=== PATIENT | female | born 1950 | race Caucasian/White ===

== ENCOUNTER 2018-08-06 16:36 | Inpatient (IN) | payer MEDICARE, OTHER ==
[~2018-08-06] VITALS: Ht 165.1 cm; Wt 80.3 kg
[~2018-08-06 16:36] MED LIST: ALPR0.25 PO; ASPI-482 PO; ESCITALOPRAM OX20 MG PO; EZET10TA18 PO; LOSA-73 PO; METO-239 PO; OMEP20TA63 PO
[2018-08-06 17:02] LABS: BASO # 0.1 x10^3/uL (0.0-0.2); BASO % 1 % (0-3); EOS # 0.1 x10^3/uL (0.0-0.7); EOS % 2 % (0-3); HEMATOCRIT 42.4 % (36.0-47.0); HEMOGLOBIN 14.1 g/dL (12.0-15.5); LYMPH # 2.1 x10^3/uL (1.0-4.8); LYMPH % 23 % (24-48); MEAN CORPUSCULAR HEMOGLOBIN 30 pg (25-35); MEAN CORPUSCULAR HGB CONC 33 g/dL (31-37); MEAN CORPUSCULAR VOLUME 90 fL (79-100); MONO # 0.5 x10^3/uL (0.0-1.1); MONO % 6 % (0-9); NEUT # 6.2 x10^3uL (1.8-7.7); NEUT % 69 % (31-73); PLATELET COUNT 306 x10^3/uL (140-400); RED BLOOD COUNT 4.74 x10^6/uL (3.50-5.40); RED CELL DISTRIBUTION WIDTH 13.9 % (11.5-14.5); WHITE BLOOD COUNT 9.1 x10^3/uL (4.0-11.0)
[2018-08-06 17:15] LABS: CALCIUM 9.6 mg/dL (8.5-10.1); CREATININE 0.9 mg/dL (0.6-1.0); GFR 62.3; POTASSIUM 3.8 mmol/L (3.5-5.1)
[2018-08-06 17:21] LABS: ALBUMIN 3.9 g/dL (3.4-5.0); ALBUMIN/GLOBULIN RATIO 1.1 (1.0-1.7); TOTAL BILIRUBIN 0.4 mg/dL (0.2-1.0); TOTAL PROTEIN 7.5 g/dL (6.4-8.2)
--- NOTE | 2018-08-06 17:25 | PHYS DOC ---
Past Medical History Past Medical History: Anxiety, GERD, High Cholesterol, Hypertension, NH, Pneumonia Additional Past Medical Histor: ANXIETY, REFLUX, PNUEMONIA Past Surgical History: Hysterectomy, Other Additional Past Surgical Histo: CTR, HEART CATH Alcohol Use: Occasionally Drug Use: None Adult General Chief Complaint Chief Complaint: CHEST PAIN HPI HPI Patient is a 67 year old female with history of hypertension, CAD, dyslipidemia who presents with left-sided chest pain radiating to her jaw and neck. Symptom onset was 45 minutes prior to ED arrival. Patient been working outdoors for greater than 30 minutes and felt overheated. She then relaxed light on the floo r. Chest percent persisted for greater than 10 minutes and she contacted EMS. Shortly after EMS arrival, 324 mg of aspirin once a local nitroglycerin was given. The patient's symptoms have since completely resolved. Patient denies nausea, shortness of breath associated with symptoms. Reports extensive history of coronary disease treated at [facility]. Patient states her last stress test was one year ago was negative. She complains of occasional chest pain which she attributes to esophageal reflux, further states she has difficulty telling her reflux from cardiac related chest pain. No other acute symptoms or complaints.[] Review of Systems Review of Systems ROS as per HPI All other systems were reviewed and found to be within normal limits, except as documented in this note. Current Medications Current Medications Current Medications Medications (Trade) Dose Ordered Sig/Santiago Start Time Stop Time Status Last Admin Dose Admin Fentanyl Citrate (Fentanyl 2ml Vial) 50 mcg 1X ONCE 08/06/18 22:30 08/06/18 22:31 DC Heparin Sodium (Porcine) (Heparin Sodium) 2,100 unit PRN Q6HRS PRN 08/06/18 22:30 Heparin Sodium/ Dextrose 500 ml @ 0 mls/hr CONT PRN 08/06/18 22:30 Ondansetron HCl (Zofran) 4 mg 1X ONCE 08/06/18 22:30 08/06/18 22:31 DC Allergies Allergies Allergies Coded Allergies Type Severity Reaction Last Updated Verified amoxicillin Allergy Intermediate HIVES 09/18/15 Yes Physical Exam Physical Exam Constitutional: Well developed, well nourished, no acute distress, non-toxic appearance. [] HENT: Normocephalic, atraumatic, bilateral external ears normal, oropharynx moist, no oral exudates, nose normal. [] Eyes: PERRLA, EOMI, conjunctiva normal, no discharge. [] Neck: Normal range of motion, no tenderness, supple, no stridor. [] Cardiovascular:Heart rate regular rhythm, no murmur [] Lungs & Thorax: Bilateral breath sounds clear to auscultation [] Abdomen: Bowel sounds normal, soft, no tenderness, no masses, no pulsatile masses. [] Skin: Warm, dry, no erythema, no rash. [] Back: No tenderness. [] Extremities: No tenderness, no cyanosis, no clubbing, ROM intact, no edema. [] Neurologic: Alert and oriented X 3, normal motor function, normal sensory function, no focal deficits noted. [] Psychologic: Affect normal, judgement normal, mood normal. [] Current Patient Data Vital Signs Vital Signs Date Time Temp Pulse Resp B/P (MAP) Pulse Ox O2 Delivery O2 Flow Rate FiO2 08/06/18 18:30 62 14 204/76 (118) 98 Room Air 08/06/18 16:36 97.8 2.0 97.8 Lab Values Laboratory Tests Test 08/06/18 16:50 08/06/18 21:30 White Blood Count 9.1 x10^3/uL (4.0-11.0) Red Blood Count 4.74 x10^6/uL (3.50-5.40) Hemoglobin 14.1 g/dL (12.0-15.5) Hematocrit 42.4 % (36.0-47.0) Mean Corpuscular Volume 90 fL (79-100) Mean Corpuscular Hemoglobin 30 pg (25-35) Mean Corpuscular Hemoglobin Concent 33 g/dL (31-37) Red Cell Distribution Width 13.9 % (11.5-14.5) Platelet Count 306 x10^3/uL (140-400) Neutrophils (%) (Auto) 69 % (31-73) Lymphocytes (%) (Auto) 23 % (24-48) L Monocytes (%) (Auto) 6 % (0-9) Eosinophils (%) (Auto) 2 % (0-3) Basophils (%) (Auto) 1 % (0-3) Neutrophils # (Auto) 6.2 x10^3uL (1.8-7.7) Lymphocytes # (Auto) 2.1 x10^3/uL (1.0-4.8) Monocytes # (Auto) 0.5 x10^3/uL (0.0-1.1) Eosinophils # (Auto) 0.1 x10^3/uL (0.0-0.7) Basophils # (Auto) 0.1 x10^3/uL (0.0-0.2) Sodium Level 140 mmol/L (136-145) Potassium Level 3.8 mmol/L (3.5-5.1) Chloride Level 104 mmol/L (98-107) Carbon Dioxide Level 21 mmol/L (21-32) Anion Gap 15 (6-14) H Blood Urea Nitrogen 16 mg/dL (7-20) Creatinine 0.9 mg/dL (0.6-1.0) Estimated GFR (Cockcroft-Gault) 62.3 BUN/Creatinine Ratio 18 (6-20) Glucose Level 106 mg/dL (70-99) H Calcium Level 9.6 mg/dL (8.5-10.1) Total Bilirubin 0.4 mg/dL (0.2-1.0) Aspartate Amino Transferase (AST) 22 U/L (15-37) Alanine Aminotransferase (ALT) 22 U/L (14-59) Alkaline Phosphatase 138 U/L (46-116) H Troponin I Quantitative < 0.017 ng/mL (0.000-0.055) 0.794 ng/mL (0.000-0.055) Total Protein 7.5 g/dL (6.4-8.2) Albumin 3.9 g/dL (3.4-5.0) Albumin/Globulin Ratio 1.1 (1.0-1.7) Laboratory Tests 08/06/18 16:50 Laboratory Tests 08/06/18 16:50 EKG EKG [EKG: Sinus rhythm, nonspecific ST-T wave changes, QTC 384.] Radiology/Procedures Radiology/Procedures [CXR: reviewed] Course & Med Decision Making Course & Med Decision Making Pertinent Labs and Imaging studies reviewed. (See chart for details) [Significant history of CAD. Patient pain-free after NTG per EMS. Initial troponin negative. Three-hour repeat troponin is positive. Patient on reevaluati on does describe some chest wall cramping which she states is chronic. Fentanyl, Zofran given. Case reviewed in detail with Dr. Guadarrama rehabilitation therapy technician for cardiology. Recommendations are admission, heparin protocol for treatment of coronary disease. Dr. Jimenez to admit] Candis Disclaimer Dragon Disclaimer This electronic medical record was generated, in whole or in part, using a voice recognition dictation system. Departure Departure Impression: Primary Impression: NSTEMI (non-ST elevated myocardial infarction) Disposition: ADMITTED INPATIENT Condition: IMPROVED Referrals: KVGN BEST MD (PCP) GLORIA LORENZANA DO Aug 06, 2018 17:25
--- NOTE | 2018-08-06 22:28 | RAD ---
CHEST AP ONLY Clinical Indication: Chest pain today, history of left heart catheterization. Comparison: AP chest March 13 2013. Findings: The cardiomediastinal silhouette is normal. Minimal scarring left costophrenic angle. Lungs are clear. There is no pneumothorax. No pleural effusion is appreciated. No acute bone abnormality. IMPRESSION: No acute cardiopulmonary process. Electronically signed by: Gabriele Montes MD (08/06/2018 10:25 PM) [facility]
[2018-08-06] MEDS ORDERED: HEPARIN for IV BOLUS 10,000 UNIT/10 ML VIAL. IV PRN (22:30)
[2018-08-06] MEDS ORDERED: fentaNYL PF VIAL 100 MCG/2 ML VIAL IV ONE (22:30)
[2018-08-06] MEDS ORDERED: ONDANSETRON PF 4 MG/2 ML VIAL. IV ONE (22:30)
--- NOTE | 2018-08-06 23:05 | PDOC1 ---
History and Physical Date of Admission Date of Admission DATE: 08/06/18 TIME: 23:05 Identification/Chief Complaint Chief Complaint Chest pain Source Source: Patient History of Present Illness History of Present Illness Ms Torres is a 67yo F w/ PMHx HTN, CAD s/p ELIZABETH to LAD in 2013, HLD (statin intolerance, on repatha), smoker, Anxiety who p/w chest pain while gardening earlier today. She notes left-sided chest pain radiating to her jaw and neck. Symptom onset was 45 minutes prior to ED arrival. Patient been working outdoors for greater than 30 minutes and felt overheated. She poured water over her head to try to feel better, but experienced nausea and her chest pressure continued even after laying flat on the floor Shortly after EMS arrival, 324 mg of aspirin once a local nitroglycerin was given. The patient's symptoms had resolved. Patient states her last stress test was one year ago was negative. She has been compliant with her meds but continues to smoke. EKG was Sinus rhythm, nonspecific ST-T wave changes, QTC 384. Initial trop was negative, 2nd trop was 0.7. Heparin GTT initiated and admitted to [facility] for NSTEMI Past Medical History Cardiovascular: CAD, HTN, Hyperlipidemia Pulmonary: No pertinent hx GI: GERD Psych: Anxiety, Depression Past Surgical History Past Surgical History: Hysterectomy Family History Family History: High Cholestrol, Hypertension Social History Smoke: <1 pack per day ALCOHOL: none Drugs: None Current Medications Current Medications Current Medications Fentanyl Citrate (Fentanyl 2ml Vial) 50 mcg 1X ONCE IV ; Start 08/06/18 at 22:30; Stop 08/06/18 at 22:31; Status DC Ondansetron HCl (Zofran) 4 mg 1X ONCE IV ; Start 08/06/18 at 22:30; Stop 08/06/18 at 22:31; Status DC Heparin Sodium/ Dextrose 500 ml @ 0 mls/hr CONT PRN IV SEE I/O RECORD; Start 08/06/18 at 22:30 Heparin Sodium (Porcine) (Heparin Sodium) 2,100 unit PRN Q6HRS PRN IV FOR UFH LEVEL LESS THAN 0.2; Start 08/06/18 at 22:30 Active Scripts Active Reported Zetia (Ezetimibe) 10 Mg Tablet 1 Tab PO DAILY Metoprolol Succinate ( Xl ) (Metoprolol Succinate) 25 Mg Tab.er.24h 12.5 Mg PO BID Losartan Potassium 50 Mg Tablet 50 Mg PO DAILY Aspir 81 (Aspirin) 81 Mg Tablet.dr 1 Tab PO DAILY Prilosec Otc (Omeprazole Magnesium) 20 Mg Tablet.dr 20 Mg PO Escitalopram Oxalate 20 Mg Tablet 20 Mg PO Allergies Allergies: Coded Allergies: amoxicillin (Verified Allergy, Intermediate, HIVES, 09/18/15) ROS General: YES: Chills, Fatigue, Malaise; No: Night Sweats, Appetite, Other PSYCHOLOGICAL ROS: No: Anxiety, Behavioral Disorder, Concentration difficultie, Decreased libido, Depression, Disorientation, Hallucinations, Hostility, Irritablity, Memory difficulties, Mood Swings, Obsessive thoughts, Physical abuse, Sexual abuse, Sleep disturbances, Suicidal ideation, Other Eyes: No Blurry vision, No Decreased vision, No Double vision, No Dry eyes, No Excessive tearing, No Eye Pain, No Itchy Eyes, No Loss of vision, No Photophobia, No Scotomata, No Uses contacts, No Uses glasses, No Other HEENT: No: Heacaches, Visual Changes, Hearing change, Nasal congestion, Nasal discharge, Oral lesions, Sinus pain, Sore Throat, Epistaxis, Sneezing, Snoring, Tinnitus, Vertigo, Vocal changes, Other ALLERGY AND IMMUNOLOGY: No: Hives, Insect Bite Sensitivity, Itchy/Watery Eyes, Nasal Congestion, Post Nasal Drip, Seasonal Allergies, Other Hematological and Lymphatic: No: Bleeding Problems, Blood Clots, Blood Transfusions, Brusing, Night Sweats, Pallor, Swollen Lymph Nodes, Other ENDOCRINE: No: Breast Changes, Galactorrhea, Hair Pattern Changes, Hot Flashes, Malaise/lethargy, Mood Swings, Palpitations, Polydipsia/polyuria, Skin Changes, Temperature Intolerance, Unexpected Weight Changes, Other Breast: No New/Changing Breast Lumps, No Nipple changes, No Nipple discharge, No Other Respiratory: YES: Cough, Shortness of breath; No: Hemoptysis, Orthopnea, Pleuritic Pain, SOB with excertion, Sputum Changes, Stridor, Tachypnea, Wheezing, Other Cardiovascular: yes Chest Pain; No Palpitations, No Orthopnea, No Paroxysmal Noc. Dyspnea, No Edema, No Lt Headedness, No Other Gastrointestinal: Yes Nausea; No Vomiting, No Abdominal Pain, No Diarrhea, No Constipation, No Melena, No Hematochezia, No Other Genitourinary: No Dysuria, No Frequency, No Incontinence, No Hematuria, No Retention, No Discharge, No Urgency, No Pain, No Flank Pain, No Other, No , No , No , No , No , No , No Musculoskeletal: No Gait Disturbance, No Joint Pain, No Joint Stiffness, No Joint Swelling, No Muscle Pain, No Muscular Weakness, No Pain In:, No Swelling In:, No Other Neurological: No Behavorial Changes, No Bowel/Bladder ControlChng, No Confusion, No Dizziness, No Gait Disturbance, No Headaches, No Impaired Coord/balance, No Memory Loss, No Numbness/Tingling, No Seizures, No Speech Problems, No Tremors, No Visual Changes, No Weakness, No Other Skin: No Dry Skin, No Eczema, No Hair Changes, No Lumps, No Mole Changes, No Mottling, No Nail Changes, No Pruritus, No Rash, No Skin Lesion Changes, No Other, No Acne Physical Exam General: Alert, Oriented X3, Cooperative, No acute distress HEENT: Atraumatic, PERRLA, EOMI, Mucous membr. moist/pink Lungs: Clear to auscultation, Normal air movement Heart: S1S2, RRR Abdomen: Normal bowel sounds, Soft, No tenderness, No hepatosplenomegaly, No masses Extremities: No clubbing, No cyanosis, No edema, Normal pulses, No tenderness/swelling Skin: No rashes, No breakdown, No significant lesion Neuro: Normal gait, Normal speech, Strength at 5/5 X4 ext, Normal tone, Sensation intact, Cranial nerves 3-12 NL, Reflexes 2+ Psych/Mental Status: Mental status NL, Mood NL Vitals Vitals Vital Signs Date Time Temp Pulse Resp B/P (MAP) Pulse Ox O2 Delivery O2 Flow Rate FiO2 08/06/18 18:30 62 14 204/76 (118) 98 Room Air 08/06/18 16:36 97.8 2.0 97.8 Labs Labs Laboratory Tests Test 08/06/18 16:50 08/06/18 21:30 White Blood Count 9.1 x10^3/uL (4.0-11.0) Red Blood Count 4.74 x10^6/uL (3.50-5.40) Hemoglobin 14.1 g/dL (12.0-15.5) Hematocrit 42.4 % (36.0-47.0) Mean Corpuscular Volume 90 fL (79-100) Mean Corpuscular Hemoglobin 30 pg (25-35) Mean Corpuscular Hemoglobin Concent 33 g/dL (31-37) Red Cell Distribution Width 13.9 % (11.5-14.5) Platelet Count 306 x10^3/uL (140-400) Neutrophils (%) (Auto) 69 % (31-73) Lymphocytes (%) (Auto) 23 % (24-48) Monocytes (%) (Auto) 6 % (0-9) Eosinophils (%) (Auto) 2 % (0-3) Basophils (%) (Auto) 1 % (0-3) Neutrophils # (Auto) 6.2 x10^3uL (1.8-7.7) Lymphocytes # (Auto) 2.1 x10^3/uL (1.0-4.8) Monocytes # (Auto) 0.5 x10^3/uL (0.0-1.1) Eosinophils # (Auto) 0.1 x10^3/uL (0.0-0.7) Basophils # (Auto) 0.1 x10^3/uL (0.0-0.2) Sodium Level 140 mmol/L (136-145) Potassium Level 3.8 mmol/L (3.5-5.1) Chloride Level 104 mmol/L (98-107) Carbon Dioxide Level 21 mmol/L (21-32) Anion Gap 15 (6-14) Blood Urea Nitrogen 16 mg/dL (7-20) Creatinine 0.9 mg/dL (0.6-1.0) Estimated GFR (Cockcroft-Gault) 62.3 BUN/Creatinine Ratio 18 (6-20) Glucose Level 106 mg/dL (70-99) Calcium Level 9.6 mg/dL (8.5-10.1) Total Bilirubin 0.4 mg/dL (0.2-1.0) Aspartate Amino Transf (AST/SGOT) 22 U/L (15-37) Alanine Aminotransferase (ALT/SGPT) 22 U/L (14-59) Alkaline Phosphatase 138 U/L (46-116) Troponin I Quantitative < 0.017 ng/mL (0.000-0.055) 0.794 ng/mL (0.000-0.055) Total Protein 7.5 g/dL (6.4-8.2) Albumin 3.9 g/dL (3.4-5.0) Albumin/Globulin Ratio 1.1 (1.0-1.7) Laboratory Tests Test 08/06/18 16:50 08/06/18 21:30 White Blood Count 9.1 x10^3/uL (4.0-11.0) Red Blood Count 4.74 x10^6/uL (3.50-5.40) Hemoglobin 14.1 g/dL (12.0-15.5) Hematocrit 42.4 % (36.0-47.0) Mean Corpuscular Volume 90 fL (79-100) Mean Corpuscular Hemoglobin 30 pg (25-35) Mean Corpuscular Hemoglobin Concent 33 g/dL (31-37) Red Cell Distribution Width 13.9 % (11.5-14.5) Platelet Count 306 x10^3/uL (140-400) Neutrophils (%) (Auto) 69 % (31-73) Lymphocytes (%) (Auto) 23 % (24-48) Monocytes (%) (Auto) 6 % (0-9) Eosinophils (%) (Auto) 2 % (0-3) Basophils (%) (Auto) 1 % (0-3) Neutrophils # (Auto) 6.2 x10^3uL (1.8-7.7) Lymphocytes # (Auto) 2.1 x10^3/uL (1.0-4.8) Monocytes # (Auto) 0.5 x10^3/uL (0.0-1.1) Eosinophils # (Auto) 0.1 x10^3/uL (0.0-0.7) Basophils # (Auto) 0.1 x10^3/uL (0.0-0.2) Sodium Level 140 mmol/L (136-145) Potassium Level 3.8 mmol/L (3.5-5.1) Chloride Level 104 mmol/L (98-107) Carbon Dioxide Level 21 mmol/L (21-32) Anion Gap 15 (6-14) Blood Urea Nitrogen 16 mg/dL (7-20) Creatinine 0.9 mg/dL (0.6-1.0) Estimated GFR (Cockcroft-Gault) 62.3 BUN/Creatinine Ratio 18 (6-20) Glucose Level 106 mg/dL (70-99) Calcium Level 9.6 mg/dL (8.5-10.1) Total Bilirubin 0.4 mg/dL (0.2-1.0) Aspartate Amino Transf (AST/SGOT) 22 U/L (15-37) Alanine Aminotransferase (ALT/SGPT) 22 U/L (14-59) Alkaline Phosphatase 138 U/L (46-116) Troponin I Quantitative < 0.017 ng/mL (0.000-0.055) 0.794 ng/mL (0.000-0.055) Total Protein 7.5 g/dL (6.4-8.2) Albumin 3.9 g/dL (3.4-5.0) Albumin/Globulin Ratio 1.1 (1.0-1.7) Images Images CXR - The cardiomediastinal silhouette is normal. Minimal scarring left costophrenic angle. Lungs are clear. There is no pneumothorax. No pleural effusion is appreciated. No acute bone abnormality. VTE Prophylaxis Ordered VTE Prophylaxis Devices: No VTE Pharmacological Prophylaxi: Yes Assessment/Plan Assessment/Plan A/P: NSTEMI - heparin GTT, ASA and NTG given. Consulted cardiology, likely needs repeat urgent catherization in the next 48 hours CAD - 03/14/2013 had LAD ELIZABETH placed for a STEMI previously, on ASA Combined diastolic and systolic heart failure - previously noted with EF 40-45% with anterolateral wall hypokinesis 5 years ago. was placed on beta blockers and ACEI HLP - intolerant of statins, on repatha and zetia for LDL goal less than 70 Tobacco abuse - advised smoking cessation Overweight - counseled on weight loss FEN - Cardiac diet, NPO after midnight PPX - heparin GTT FULL CODE Dispo - admit to [facility] for NSTEMI, likely 2 midnights inpatient TRICIA CHO MD Aug 06, 2018 23:05
[2018-08-06] MEDS: HEPARIN 25,000UTS/500ML PREMIX 500 ML IV PRN (23:16)
[2018-08-06] MEDS ORDERED: fentaNYL PF VIAL 100 MCG/2 ML VIAL IV PRN (23:45)
[2018-08-06] MEDS ORDERED: ONDANSETRON PF 4 MG/2 ML VIAL. IV PRN (23:45)
[2018-08-07] VITALS (7 sets, daily range): BP systolic 107–172; BP diastolic 56–81
[2018-08-07] MEDS ORDERED: ASPIRIN CHEWABLE 81 MG TABLET. PO ONE (01:00)
[2018-08-07] MEDS: NICOTINE 14MG PATCH. TD SCH ×2 (01:54→08:06)
[2018-08-07] MEDS ORDERED: ENALAPRILAT 1.25 MG/ML VIAL. IVP ONE (02:00)
[2018-08-07 05:31] LABS: HEMATOCRIT 40.6 % (36.0-47.0); HEMOGLOBIN 13.3 g/dL (12.0-15.5); RED BLOOD COUNT 4.45 x10^6/uL (3.50-5.40); WHITE BLOOD COUNT 7.7 x10^3/uL (4.0-11.0)
[2018-08-07] MEDS: PANTOPRAZOLE 40 MG TABLET.DR. PO SCH (08:07)
[2018-08-07] MEDS: ASPIRIN ENTERIC COATED 81 MG TABLET.DR. PO SCH (08:07)
[2018-08-07] MEDS: LOSARTAN POTASSIUM 50 MG TABLET. PO SCH (08:07)
[2018-08-07] MEDS: EZETIMIBE 10 MG TABLET. PO SCH (08:07)
[2018-08-07] MEDS: CITALOPRAM 20 MG TABLET. PO SCH (08:07)
[2018-08-07] MEDS: METOPROLOL SUCC 24HR ER 25 MG TAB.ER.24H. PO SCH ×2 (08:45→20:44)
[2018-08-07] MEDS ORDERED: ANTI-COAG MONITOR BY PHARMACY. MC PRN (13:00)
--- NOTE | 2018-08-07 13:35 | PDOC2 ---
CONSULT Date of Consult Date of Consult DATE: 08/07/18 TIME: 13:29 Reason for Consult Reason for Consult: Non-ST elevated myocardial infarction. Referring Physician Referring Physician: Dr. Jimenez Identification/Chief Complaint Chief Complaint Chest pain Source Source: Chart review, Patient History of Present Illness Reason for Visit: The patient is a 67-year-old female who presented to the emergency room after developing chest pain after working in her yard yesterday. The pain lasted for approximately 20-30 minutes and has not recurred. In the emergency room the patient's EKG did not show an ST elevated myocardial infarction. She however had a minimally elevated troponin and was started on heparin and a rule out protocol. The patient remained pain-free overnight but did have an elevation of troponin to approximately 3.0. She does have a history of coronary disease with a ST elevated myocardial infarction in 2013. Catheterization at that time showed an ejection fraction of 40-45% and one significant lesion being a 99% mid LAD lesion which was stented with a 2.75 x 12 and a 2.75 x 18 overlapping resolute drug-eluting stents. Patient reports overall doing well since that time although she does continue to smoke. She is comfortable in her bed this morning. Past Medical History Cardiovascular: CAD, HTN, NH, Hyperlipidemia Pulmonary: No pertinent hx GI: GERD Psych: Anxiety, Depression Past Surgical History Past Surgical History: Hysterectomy (2 drug-eluting stents to the LAD) Family History Family History: High Cholestrol, Hypertension Social History <1 pack per day ALCOHOL: none Drugs: None Lives: with Family Current Medications Current Medications Current Medications Fentanyl Citrate (Fentanyl 2ml Vial) 50 mcg 1X ONCE IV Last administered on 08/06/18at 23:12; Start 08/06/18 at 22:30; Stop 08/06/18 at 22:31; Status DC Ondansetron HCl (Zofran) 4 mg 1X ONCE IV Last administered on 08/06/18at 23:13; Start 08/06/18 at 22:30; Stop 08/06/18 at 22:31; Status DC Heparin Sodium/ Dextrose 500 ml @ 0 mls/hr CONT PRN IV SEE I/O RECORD Last administered on 08/06/18at 23:16; Start 08/06/18 at 22:30 Heparin Sodium (Porcine) (Heparin Sodium) 2,100 unit PRN Q6HRS PRN IV FOR UFH LEVEL LESS THAN 0.2 Last administered on 08/06/18at 23:15; Start 08/06/18 at 22:30 Aspirin (Ecotrin) 81 mg DAILYWBKFT PO Last administered on 08/07/18 08:07; Start 08/07/18 at 08:00 EZETIMIBE (Zetia) 10 mg DAILY PO Last administered on 08/07/18at 08:07; Start 08/07/18 at 09:00 Losartan Potassium (Cozaar) 50 mg DAILY PO Last administered on 08/07/18 08:07; Start 08/07/18 at 09:00 Metoprolol Succinate (Toprol Xl) 12.5 mg BID PO ; Start 08/07/18 at 09:00 Citalopram Hydrobromide (CeleXA) 20 mg DAILY PO Last administered on 08/07/18at 08:07; Start 08/07/18 at 09:00 Pantoprazole Sodium (Protonix) 40 mg DAILYAC PO Last administered on 08/07/18 08:07; Start 08/07/18 at 07:30 Ondansetron HCl (Zofran) 4 mg PRN Q6HRS PRN IV NAUSEA/VOMITING; Start 08/06/18 at 23:45 Aspirin (Children'S Aspirin) 324 mg 1X ONCE PO Last administered on 08/07/18at 01:54; Start 08/07/18 at 01:00; Stop 08/07/18 at 01:02; Status DC Fentanyl Citrate (Fentanyl 2ml Vial) 50 mcg PRN Q3HRS PRN IV PAIN; Start 08/06/18 at 23:45 Nicotine (Nicoderm Cq 14mg) 1 patch DAILY TD Last administered on 08/07/18 08:06; Start 08/07/18 at 01:00 Enalaprilat (Vasotec Inj) 1.25 mg 1X ONCE IVP Last administered on 08/07/18 02:09; Start 08/07/18 at 02:00; Stop 08/07/18 at 02:01; Status DC Info (Anti-Coagulation Monitoring By Pharmacy) 1 each PRN DAILY PRN MC SEE COMMENTS Last administered on 08/07/18at 12:49; Start 08/07/18 at 13:00 Active Scripts Active Reported Metoprolol Succinate ( Xl ) (Metoprolol Succinate) 25 Mg Tab.er.24h 12.5 Mg PO BID Losartan Potassium 50 Mg Tablet 50 Mg PO DAILY Aspir 81 (Aspirin) 81 Mg Tablet. 1 Tab PO DAILY Prilosec Otc (Omeprazole Magnesium) 20 Mg Tablet.dr 20 Mg PO Escitalopram Oxalate 20 Mg Tablet 10 Mg PO DAILY MDD 10 Allergies Allergies: Coded Allergies: amoxicillin (Verified Allergy, Intermediate, HIVES, 09/18/15) ROS Cardiovascular: yes Chest Pain Physical Exam General: No acute distress HEENT: Atraumatic Lungs: Clear to auscultation Heart: Regular rate Abdomen: Normal bowel sounds Vitals VITALS Vital Signs Date Time Temp Pulse Resp B/P (MAP) Pulse Ox O2 Delivery O2 Flow Rate FiO2 08/07/18 11:00 97.9 53 18 107/59 (75) 98 Room Air 97.9 08/06/18 16:36 2.0 Labs Labs Laboratory Tests Test 08/06/18 16:50 08/06/18 21:30 08/07/18 04:40 08/07/18 11:00 White Blood Count 9.1 x10^3/uL (4.0-11.0) 7.7 x10^3/uL (4.0-11.0) Red Blood Count 4.74 x10^6/uL (3.50-5.40) 4.45 x10^6/uL (3.50-5.40) Hemoglobin 14.1 g/dL (12.0-15.5) 13.3 g/dL (12.0-15.5) Hematocrit 42.4 % (36.0-47.0) 40.6 % (36.0-47.0) Mean Corpuscular Volume 90 fL (79-100) 91 fL (79-100) Mean Corpuscular Hemoglobin 30 pg (25-35) 30 pg (25-35) Mean Corpuscular Hemoglobin Concent 33 g/dL (31-37) 33 g/dL (31-37) Red Cell Distribution Width 13.9 % (11.5-14.5) 14.0 % (11.5-14.5) Platelet Count 306 x10^3/uL (140-400) 281 x10^3/uL (140-400) Neutrophils (%) (Auto) 69 % (31-73) Lymphocytes (%) (Auto) 23 % (24-48) Monocytes (%) (Auto) 6 % (0-9) Eosinophils (%) (Auto) 2 % (0-3) Basophils (%) (Auto) 1 % (0-3) Neutrophils # (Auto) 6.2 x10^3uL (1.8-7.7) Lymphocytes # (Auto) 2.1 x10^3/uL (1.0-4.8) Monocytes # (Auto) 0.5 x10^3/uL (0.0-1.1) Eosinophils # (Auto) 0.1 x10^3/uL (0.0-0.7) Basophils # (Auto) 0.1 x10^3/uL (0.0-0.2) Sodium Level 140 mmol/L (136-145) Potassium Level 3.8 mmol/L (3.5-5.1) Chloride Level 104 mmol/L (98-107) Carbon Dioxide Level 21 mmol/L (21-32) Anion Gap 15 (6-14) Blood Urea Nitrogen 16 mg/dL (7-20) Creatinine 0.9 mg/dL (0.6-1.0) Estimated GFR (Cockcroft-Gault) 62.3 BUN/Creatinine Ratio 18 (6-20) Glucose Level 106 mg/dL (70-99) Calcium Level 9.6 mg/dL (8.5-10.1) Total Bilirubin 0.4 mg/dL (0.2-1.0) Aspartate Amino Transf (AST/SGOT) 22 U/L (15-37) Alanine Aminotransferase (ALT/SGPT) 22 U/L (14-59) Alkaline Phosphatase 138 U/L (46-116) Troponin I Quantitative < 0.017 ng/mL (0.000-0.055) 0.794 ng/mL (0.000-0.055) 3.281 ng/mL (0.000-0.055) Total Protein 7.5 g/dL (6.4-8.2) Albumin 3.9 g/dL (3.4-5.0) Albumin/Globulin Ratio 1.1 (1.0-1.7) Heparin Anti-Xa Act, Unfractionated 0.40 IU/mL (0.30-0.70) 0.47 IU/mL (0.30-0.70) Test 08/07/18 11:30 Troponin I Quantitative 2.512 ng/mL (0.000-0.055) Laboratory Tests Test 08/06/18 16:50 08/06/18 21:30 08/07/18 04:40 08/07/18 11:00 White Blood Count 9.1 x10^3/uL (4.0-11.0) 7.7 x10^3/uL (4.0-11.0) Red Blood Count 4.74 x10^6/uL (3.50-5.40) 4.45 x10^6/uL (3.50-5.40) Hemoglobin 14.1 g/dL (12.0-15.5) 13.3 g/dL (12.0-15.5) Hematocrit 42.4 % (36.0-47.0) 40.6 % (36.0-47.0) Mean Corpuscular Volume 90 fL (79-100) 91 fL (79-100) Mean Corpuscular Hemoglobin 30 pg (25-35) 30 pg (25-35) Mean Corpuscular Hemoglobin Concent 33 g/dL (31-37) 33 g/dL (31-37) Red Cell Distribution Width 13.9 % (11.5-14.5) 14.0 % (11.5-14.5) Platelet Count 306 x10^3/uL (140-400) 281 x10^3/uL (140-400) Neutrophils (%) (Auto) 69 % (31-73) Lymphocytes (%) (Auto) 23 % (24-48) Monocytes (%) (Auto) 6 % (0-9) Eosinophils (%) (Auto) 2 % (0-3) Basophils (%) (Auto) 1 % (0-3) Neutrophils # (Auto) 6.2 x10^3uL (1.8-7.7) Lymphocytes # (Auto) 2.1 x10^3/uL (1.0-4.8) Monocytes # (Auto) 0.5 x10^3/uL (0.0-1.1) Eosinophils # (Auto) 0.1 x10^3/uL (0.0-0.7) Basophils # (Auto) 0.1 x10^3/uL (0.0-0.2) Sodium Level 140 mmol/L (136-145) Potassium Level 3.8 mmol/L (3.5-5.1) Chloride Level 104 mmol/L (98-107) Carbon Dioxide Level 21 mmol/L (21-32) Anion Gap 15 (6-14) Blood Urea Nitrogen 16 mg/dL (7-20) Creatinine 0.9 mg/dL (0.6-1.0) Estimated GFR (Cockcroft-Gault) 62.3 BUN/Creatinine Ratio 18 (6-20) Glucose Level 106 mg/dL (70-99) Calcium Level 9.6 mg/dL (8.5-10.1) Total Bilirubin 0.4 mg/dL (0.2-1.0) Aspartate Amino Transf (AST/SGOT) 22 U/L (15-37) Alanine Aminotransferase (ALT/SGPT) 22 U/L (14-59) Alkaline Phosphatase 138 U/L (46-116) Troponin I Quantitative < 0.017 ng/mL (0.000-0.055) 0.794 ng/mL (0.000-0.055) 3.281 ng/mL (0.000-0.055) Total Protein 7.5 g/dL (6.4-8.2) Albumin 3.9 g/dL (3.4-5.0) Albumin/Globulin Ratio 1.1 (1.0-1.7) Heparin Anti-Xa Act, Unfractionated 0.40 IU/mL (0.30-0.70) 0.47 IU/mL (0.30-0.70) Test 08/07/18 11:30 Troponin I Quantitative 2.512 ng/mL (0.000-0.055) Images Images Chest x-ray shows no acute changes. Assessment/Plan Assessment/Plan 1. Non-ST elevated myocardial infarction. Pain-free overnight. Peak troponin of 3.28. 2 stents placed to the LAD in 2013. We'll continue on heparin on present medications. We'll plan heart catheterization tomorrow. Risks and benefits were discussed with the patient. 2. Acute on chronic systolic heart failure. Mild. Continuing present treatments. We'll check LV function. 3. Hypertension. Controlled. Continue present treatment. 4. Hyperlipidemia. Patient is on intolerant to statins. She is on Repatha. [facility] ([facility]3] for allowing us to participate in the care of your patient. PABLO TELLES MD Aug 07, 2018 13:35
--- NOTE | 2018-08-07 13:37 | PDOC ---
PROGRESS NOTES Chief Complaint Chief Complaint vNSTEMI - heparin GTT, ASA and NTG given. Consulted cardiology, discussed with training consultant who most likely will take patient to cath in the am CAD - 03/14/2013 had LAD ELIZABETH placed for a STEMI previously, on ASA Combined diastolic and systolic heart failure - previously noted with EF 40-45% with anterolateral wall hypokinesis 5 years ago. was placed on beta blockers and ACEI HLP - intolerant of statins, on repatha and zetia for LDL goal less than 70 Tobacco abuse - advised smoking cessation upon admission Overweight - counseled on weight loss FEN - Cardiac diet, NPO after midnight if cardiac cath if not done later in the day otherwise can resume diet. Cardiac PPX - heparin GTT FULL CODE Dispo - admit to [facility] for NSTEMI, likely 2 midnights inpatient History of Present Illness History of Present Illness No complaints during my visit. The patient denies chest pain no palpitations no shortness of breath has been reported ever since her admission. Results of her laboratory data were discussed and her case also discussed with training consultant. Recommendations greatly appreciated reassurance provided to the patient Vitals Vitals Vital Signs Date Time Temp Pulse Resp B/P (MAP) Pulse Ox O2 Delivery O2 Flow Rate FiO2 08/07/18 11:00 97.9 53 18 107/59 (75) 98 Room Air 97.9 08/06/18 16:36 2.0 Physical Exam General: No acute distress Heart: Regular rate Lungs: Clear Abdomen: Normal bowel sounds Extremities: No clubbing, No cyanosis, No edema, Normal pulses, No tender ness/swelling Skin: No rashes, No breakdown, No significant lesion Labs LABS Laboratory Tests Test 08/06/18 16:50 08/06/18 21:30 08/07/18 04:40 08/07/18 11:00 White Blood Count 9.1 x10^3/uL (4.0-11.0) 7.7 x10^3/uL (4.0-11.0) Red Blood Count 4.74 x10^6/uL (3.50-5.40) 4.45 x10^6/uL (3.50-5.40) Hemoglobin 14.1 g/dL (12.0-15.5) 13.3 g/dL (12.0-15.5) Hematocrit 42.4 % (36.0-47.0) 40.6 % (36.0-47.0) Mean Corpuscular Volume 90 fL (79-100) 91 fL (79-100) Mean Corpuscular Hemoglobin 30 pg (25-35) 30 pg (25-35) Mean Corpuscular Hemoglobin Concent 33 g/dL (31-37) 33 g/dL (31-37) Red Cell Distribution Width 13.9 % (11.5-14.5) 14.0 % (11.5-14.5) Platelet Count 306 x10^3/uL (140-400) 281 x10^3/uL (140-400) Neutrophils (%) (Auto) 69 % (31-73) Lymphocytes (%) (Auto) 23 % (24-48) Monocytes (%) (Auto) 6 % (0-9) Eosinophils (%) (Auto) 2 % (0-3) Basophils (%) (Auto) 1 % (0-3) Neutrophils # (Auto) 6.2 x10^3uL (1.8-7.7) Lymphocytes # (Auto) 2.1 x10^3/uL (1.0-4.8) Monocytes # (Auto) 0.5 x10^3/uL (0.0-1.1) Eosinophils # (Auto) 0.1 x10^3/uL (0.0-0.7) Basophils # (Auto) 0.1 x10^3/uL (0.0-0.2) Sodium Level 140 mmol/L (136-145) Potassium Level 3.8 mmol/L (3.5-5.1) Chloride Level 104 mmol/L (98-107) Carbon Dioxide Level 21 mmol/L (21-32) Anion Gap 15 (6-14) Blood Urea Nitrogen 16 mg/dL (7-20) Creatinine 0.9 mg/dL (0.6-1.0) Estimated GFR (Cockcroft-Gault) 62.3 BUN/Creatinine Ratio 18 (6-20) Glucose Level 106 mg/dL (70-99) Calcium Level 9.6 mg/dL (8.5-10.1) Total Bilirubin 0.4 mg/dL (0.2-1.0) Aspartate Amino Transf (AST/SGOT) 22 U/L (15-37) Alanine Aminotransferase (ALT/SGPT) 22 U/L (14-59) Alkaline Phosphatase 138 U/L (46-116) Troponin I Quantitative < 0.017 ng/mL (0.000-0.055) 0.794 ng/mL (0.000-0.055) 3.281 ng/mL (0.000-0.055) Total Protein 7.5 g/dL (6.4-8.2) Albumin 3.9 g/dL (3.4-5.0) Albumin/Globulin Ratio 1.1 (1.0-1.7) Heparin Anti-Xa Act, Unfractionated 0.40 IU/mL (0.30-0.70) 0.47 IU/mL (0.30-0.70) Test 08/07/18 11:30 Troponin I Quantitative 2.512 ng/mL (0.000-0.055) Review of Systems Review of Systems Pertinent as per history of present illness otherwise 14 point review of system is negative Comment Review of Relevant I have reviewed the following items roger (where applicable) has been applied. Labs Laboratory Tests Test 08/06/18 16:50 08/06/18 21:30 08/07/18 04:40 08/07/18 11:00 White Blood Count 9.1 x10^3/uL (4.0-11.0) 7.7 x10^3/uL (4.0-11.0) Red Blood Count 4.74 x10^6/uL (3.50-5.40) 4.45 x10^6/uL (3.50-5.40) Hemoglobin 14.1 g/dL (12.0-15.5) 13.3 g/dL (12.0-15.5) Hematocrit 42.4 % (36.0-47.0) 40.6 % (36.0-47.0) Mean Corpuscular Volume 90 fL (79-100) 91 fL (79-100) Mean Corpuscular Hemoglobin 30 pg (25-35) 30 pg (25-35) Mean Corpuscular Hemoglobin Concent 33 g/dL (31-37) 33 g/dL (31-37) Red Cell Distribution Width 13.9 % (11.5-14.5) 14.0 % (11.5-14.5) Platelet Count 306 x10^3/uL (140-400) 281 x10^3/uL (140-400) Neutrophils (%) (Auto) 69 % (31-73) Lymphocytes (%) (Auto) 23 % (24-48) Monocytes (%) (Auto) 6 % (0-9) Eosinophils (%) (Auto) 2 % (0-3) Basophils (%) (Auto) 1 % (0-3) Neutrophils # (Auto) 6.2 x10^3uL (1.8-7.7) Lymphocytes # (Auto) 2.1 x10^3/uL (1.0-4.8) Monocytes # (Auto) 0.5 x10^3/uL (0.0-1.1) Eosinophils # (Auto) 0.1 x10^3/uL (0.0-0.7) Basophils # (Auto) 0.1 x10^3/uL (0.0-0.2) Sodium Level 140 mmol/L (136-145) Potassium Level 3.8 mmol/L (3.5-5.1) Chloride Level 104 mmol/L (98-107) Carbon Dioxide Level 21 mmol/L (21-32) Anion Gap 15 (6-14) Blood Urea Nitrogen 16 mg/dL (7-20) Creatinine 0.9 mg/dL (0.6-1.0) Estimated GFR (Cockcroft-Gault) 62.3 BUN/Creatinine Ratio 18 (6-20) Glucose Level 106 mg/dL (70-99) Calcium Level 9.6 mg/dL (8.5-10.1) Total Bilirubin 0.4 mg/dL (0.2-1.0) Aspartate Amino Transf (AST/SGOT) 22 U/L (15-37) Alanine Aminotransferase (ALT/SGPT) 22 U/L (14-59) Alkaline Phosphatase 138 U/L (46-116) Troponin I Quantitative < 0.017 ng/mL (0.000-0.055) 0.794 ng/mL (0.000-0.055) 3.281 ng/mL (0.000-0.055) Total Protein 7.5 g/dL (6.4-8.2) Albumin 3.9 g/dL (3.4-5.0) Albumin/Globulin Ratio 1.1 (1.0-1.7) Heparin Anti-Xa Act, Unfractionated 0.40 IU/mL (0.30-0.70) 0.47 IU/mL (0.30-0.70) Test 08/07/18 11:30 Troponin I Quantitative 2.512 ng/mL (0.000-0.055) Laboratory Tests Test 08/06/18 16:50 08/06/18 21:30 08/07/18 04:40 08/07/18 11:00 White Blood Count 9.1 x10^3/uL (4.0-11.0) 7.7 x10^3/uL (4.0-11.0) Red Blood Count 4.74 x10^6/uL (3.50-5.40) 4.45 x10^6/uL (3.50-5.40) Hemoglobin 14.1 g/dL (12.0-15.5) 13.3 g/dL (12.0-15.5) Hematocrit 42.4 % (36.0-47.0) 40.6 % (36.0-47.0) Mean Corpuscular Volume 90 fL (79-100) 91 fL (79-100) Mean Corpuscular Hemoglobin 30 pg (25-35) 30 pg (25-35) Mean Corpuscular Hemoglobin Concent 33 g/dL (31-37) 33 g/dL (31-37) Red Cell Distribution Width 13.9 % (11.5-14.5) 14.0 % (11.5-14.5) Platelet Count 306 x10^3/uL (140-400) 281 x10^3/uL (140-400) Neutrophils (%) (Auto) 69 % (31-73) Lymphocytes (%) (Auto) 23 % (24-48) Monocytes (%) (Auto) 6 % (0-9) Eosinophils (%) (Auto) 2 % (0-3) Basophils (%) (Auto) 1 % (0-3) Neutrophils # (Auto) 6.2 x10^3uL (1.8-7.7) Lymphocytes # (Auto) 2.1 x10^3/uL (1.0-4.8) Monocytes # (Auto) 0.5 x10^3/uL (0.0-1.1) Eosinophils # (Auto) 0.1 x10^3/uL (0.0-0.7) Basophils # (Auto) 0.1 x10^3/uL (0.0-0.2) Sodium Level 140 mmol/L (136-145) Potassium Level 3.8 mmol/L (3.5-5.1) Chloride Level 104 mmol/L (98-107) Carbon Dioxide Level 21 mmol/L (21-32) Anion Gap 15 (6-14) Blood Urea Nitrogen 16 mg/dL (7-20) Creatinine 0.9 mg/dL (0.6-1.0) Estimated GFR (Cockcroft-Gault) 62.3 BUN/Creatinine Ratio 18 (6-20) Glucose Level 106 mg/dL (70-99) Calcium Level 9.6 mg/dL (8.5-10.1) Total Bilirubin 0.4 mg/dL (0.2-1.0) Aspartate Amino Transf (AST/SGOT) 22 U/L (15-37) Alanine Aminotransferase (ALT/SGPT) 22 U/L (14-59) Alkaline Phosphatase 138 U/L (46-116) Troponin I Quantitative < 0.017 ng/mL (0.000-0.055) 0.794 ng/mL (0.000-0.055) 3.281 ng/mL (0.000-0.055) Total Protein 7.5 g/dL (6.4-8.2) Albumin 3.9 g/dL (3.4-5.0) Albumin/Globulin Ratio 1.1 (1.0-1.7) Heparin Anti-Xa Act, Unfractionated 0.40 IU/mL (0.30-0.70) 0.47 IU/mL (0.30-0.70) Test 08/07/18 11:30 Troponin I Quantitative 2.512 ng/mL (0.000-0.055) Medications Current Medications Fentanyl Citrate (Fentanyl 2ml Vial) 50 mcg 1X ONCE IV Last administered on 08/06/18at 23:12; Start 08/06/18 at 22:30; Stop 08/06/18 at 22:31; Status DC Ondansetron HCl (Zofran) 4 mg 1X ONCE IV Last administered on 08/06/18 23:13; Start 08/06/18 at 22:30; Stop 08/06/18 at 22:31; Status DC Heparin Sodium/ Dextrose 500 ml @ 0 mls/hr CONT PRN IV SEE I/O RECORD Last admi nistered on 08/06/18at 23:16; Start 08/06/18 at 22:30 Heparin Sodium (Porcine) (Heparin Sodium) 2,100 unit PRN Q6HRS PRN IV FOR UFH LEVEL LESS THAN 0.2 Last administered on 08/06/18at 23:15; Start 08/06/18 at 22:30 Aspirin (Ecotrin) 81 mg DAILYWBKFT PO Last administered on 08/07/18 08:07; Start 08/07/18 at 08:00 EZETIMIBE (Zetia) 10 mg DAILY PO Last administered on 08/07/18 08:07; Start 08/07/18 at 09:00 Losartan Potassium (Cozaar) 50 mg DAILY PO Last administered on 08/07/18 08:07; Start 08/07/18 at 09:00 Metoprolol Succinate (Toprol Xl) 12.5 mg BID PO ; Start 08/07/18 at 09:00 Citalopram Hydrobromide (CeleXA) 20 mg DAILY PO Last administered on 08/07/18 08:07; Start 08/07/18 at 09:00 Pantoprazole Sodium (Protonix) 40 mg DAILYAC PO Last administered on 08/07/18at 08:07; Start 08/07/18 at 07:30 Ondansetron HCl (Zofran) 4 mg PRN Q6HRS PRN IV NAUSEA/VOMITING; Start 08/06/18 at 23:45 Aspirin (Children'S Aspirin) 324 mg 1X ONCE PO Last administered on 08/07/18at 01:54; Start 08/07/18 at 01:00; Stop 08/07/18 at 01:02; Status DC Fentanyl Citrate (Fentanyl 2ml Vial) 50 mcg PRN Q3HRS PRN IV PAIN; Start 08/06/18 at 23:45 Nicotine (Nicoderm Cq 14mg) 1 patch DAILY TD Last administered on 08/07/18at 08:06; Start 08/07/18 at 01:00 Enalaprilat (Vasotec Inj) 1.25 mg 1X ONCE IVP Last administered on 08/07/18at 02:09; Start 08/07/18 at 02:00; Stop 08/07/18 at 02:01; Status DC Info (Anti-Coagulation Monitoring By Pharmacy) 1 each PRN DAILY PRN MC SEE COMMENTS Last administered on 08/07/18at 12:49; Start 08/07/18 at 13:00 Active Scripts Active Reported Metoprolol Succinate ( Xl ) (Metoprolol Succinate) 25 Mg Tab.er.24h 12.5 Mg PO BID Losartan Potassium 50 Mg Tablet 50 Mg PO DAILY Aspir 81 (Aspirin) 81 Mg Tablet. 1 Tab PO DAILY Prilosec Otc (Omeprazole Magnesium) 20 Mg Tablet.dr 20 Mg PO Escitalopram Oxalate 20 Mg Tablet 10 Mg PO DAILY MDD 10 Vitals/I & O Vital Sign - Last 24 Hours 08/06/18 08/06/18 08/06/18 08/06/18 16:36 17:00 17:30 18:00 Temp 97.8 97.8 Pulse 67 58 56 58 Resp 16 18 16 16 B/P (MAP) 143/79 (100) 154/80 (104) 180/86 (117) 165/88 (113) Pulse Ox 99 95 96 98 O2 Delivery Nasal Cannula Room Air Room Air Room Air O2 Flow Rate 2.0 08/06/18 08/06/18 08/06/18 08/06/18 18:30 19:00 19:30 20:00 Pulse 62 58 56 56 Resp 14 16 18 16 B/P (MAP) 204/76 (118) 152/75 (100) 159/76 (103) 153/74 (100) Pulse Ox 98 98 98 96 O2 Delivery Room Air Room Air Room Air Room Air 08/06/18 08/06/18 08/06/18 08/06/18 20:30 21:00 21:30 22:00 Pulse 74 56 50 56 Resp 14 16 16 18 B/P (MAP) 154/99 (117) 155/70 (98) 178/89 (118) Pulse Ox 97 97 97 98 O2 Delivery Room Air Room Air Room Air Room Air 08/06/18 08/06/18 08/06/18 08/06/18 22:30 23:00 23:12 23:30 Pulse 52 60 54 Resp 16 14 18 16 B/P (MAP) 176/79 (111) 178/81 (113) 184/98 (126) Pulse Ox 99 97 98 94 O2 Delivery Room Air Room Air Room Air 08/07/18 08/07/18 08/07/18 08/07/18 00:00 00:30 01:15 02:01 Temp 97.8 97.8 Pulse 60 50 53 Resp 18 16 17 B/P (MAP) 135/61 (85) 139/67 (91) 172/80 (110) Pulse Ox 97 93 98 O2 Delivery Room Air Room Air Room Air Room Air 08/07/18 08/07/18 08/07/18 08/07/18 02:09 03:08 07:00 08:00 Temp 97.7 97.7 Pulse 45 45 48 Resp 16 18 B/P (MAP) 180/72 133/63 (86) 122/56 (78) Pulse Ox 94 O2 Delivery Room Air Room Air Room Air 08/07/18 08/07/18 08:07 11:00 Temp 97.9 97.9 Pulse 48 53 Resp 18 B/P (MAP) 122/56 107/59 (75) Pulse Ox 98 O2 Delivery Room Air Intake and Output 08/06/18 08/06/18 08/07/18 15:00 23:00 07:00 Intake Total 100 ml Output Total 200 ml Balance -100 ml PAULA DOWELL MD Aug 07, 2018 13:37
[2018-08-07] MEDS: HEPARIN 25,000UTS/500ML PREMIX 500 ML IV PRN (20:43)
[2018-08-08] VITALS (16 sets, daily range): BP systolic 108–149; BP diastolic 56–85
--- NOTE | 2018-08-08 06:46 | EKG ---
[facility] [address] [place] [address] Test Date: 2018-08-06 Test Time: 16:40:38 Pat Name: STEPHANIE WANG Department: Room: 258 1 Gender: F Manager Practice: [facility] : 1950 Requested By: TRICIA CHO Order Number: [id number] Reading MD: Measurements Intervals Clemons Rate: 61 P: 58 NM: 160 QRS: 10 QRSD: 86 T: 40 QT: 376 QTc: 383 Interpretive Statements SINUS RHYTHM QRS(T) CONTOUR ABNORMALITY CONSISTENT WITH INFERIOR INFARCT PROBABLY OLD ABNORMAL ECG No previous ECG available for comparison
[2018-08-08] MEDS ORDERED: IV NORMAL SALINE 1000ML BAG 1,000 ML IV SCH ×2 (07:30→10:00)
[2018-08-08] MEDS ORDERED: IOHEXOL 300 MG/ML 100ML VIAL. ONE (07:44)
[2018-08-08] MEDS ORDERED: LIDOCAINE 1% PF 2 ML VIAL. ONE (07:44)
[2018-08-08] MEDS ORDERED: MIDAZOLAM HCL/PF 2 MG/2 ML VIAL. ONE ×2 (08:06→09:20)
[2018-08-08] MEDS ORDERED: fentaNYL PF VIAL 100 MCG/2 ML VIAL ONE (08:06)
[2018-08-08] MEDS: ASPIRIN ENTERIC COATED 81 MG TABLET.DR. PO SCH (08:22)
[2018-08-08] MEDS ORDERED: IOHEXOL 300 MG/ML 100ML VIAL. IART ONE (08:30)
[2018-08-08] MEDS ORDERED: LIDOCAINE 1% Multi-Dose 20 ML VIAL. INJ ONE (08:30)
[2018-08-08] MEDS ORDERED: MIDAZOLAM HCL/PF 2 MG/2 ML VIAL. IV ONE (08:30)
[2018-08-08] MEDS ORDERED: fentaNYL PF VIAL 100 MCG/2 ML VIAL IV ONE (08:30)
[2018-08-08] MEDS ORDERED: LIDOCAINE 1% Multi-Dose 20 ML VIAL. ONE (08:41)
--- NOTE | 2018-08-08 08:50 | PDOC ---
MODERATE SEDATION ASSESSMENT RISKS/ALTERNATIVES Risks/Alternatives Risks and alternatives of this type of sedation and procedure discussed with: RISK/ALTERNATIVES: Patient H & P ON CHART H & P H & P on chart and reviewed for co-morbid conditions and appropriate labs. H&P ON CHART: Yes STATUS PREG STATUS ASSESSED: Yes MEDS/ALLERGIES REVIEWED Meds/Allergies Reviewed Medications and Allergies including time and route of recently administered narcotics and sedatives. MEDS/ALLERGIES REVIEWED: Yes ASA RATING ASA RATING: II AIRWAY ASSESSMENT Airway Assessment Airway patency, oral function limitations, presence of caps, crowns, dentures, partials, and ability to extend neck assessed. AIRWAY ASSESSMENT: Yes MALLAMPATI SCORE MALLAMPATI SCORE: II PRE-SEDATION ASSESSMENT PRE-SEDATION ASSESSMENT: Yes PABLO TELLES MD Aug 08, 2018 08:50
[2018-08-08] MEDS: METOPROLOL SUCC 24HR ER 25 MG TAB.ER.24H. PO SCH (09:00)
[2018-08-08] MEDS ORDERED: HEPARIN for IV BOLUS 10,000 UNIT/10 ML VIAL. ONE (09:18)
[2018-08-08] MEDS ORDERED: IODIXANOL 320 MG/ML 100 ML VIAL. ONE (09:18)
[2018-08-08] MEDS ORDERED: NITROGLYCERIN OINT 1 GM PACKET. TP ONE (09:30)
[2018-08-08] MEDS ORDERED: HEPARIN for IV BOLUS 10,000 UNIT/10 ML VIAL. IV ONE (09:30)
[2018-08-08] MEDS ORDERED: NITROGLYCERIN SUBLINGUAL 0.4 MG BOTTLE OF 25. SL PRN (10:00)
[2018-08-08] MEDS ORDERED: 0.9 % SODIUM CHLORIDE 10 ML DISP.SYRIN. IV PRN (10:00)
[2018-08-08] MEDS: CITALOPRAM 20 MG TABLET. PO SCH (10:13)
[2018-08-08] MEDS: LOSARTAN POTASSIUM 50 MG TABLET. PO SCH (10:13)
[2018-08-08] MEDS: EZETIMIBE 10 MG TABLET. PO SCH (10:13)
[2018-08-08] MEDS: NICOTINE 14MG PATCH. TD SCH (10:14)
[2018-08-08] MEDS: PANTOPRAZOLE 40 MG TABLET.DR. PO SCH (10:14)
[2018-08-08] MEDS ORDERED: CLOPIDOGREL BISULFATE 75 MG TABLET PO SCH (10:30)
--- NOTE | 2018-08-08 14:37 | NUR ---
SS following for discharge planning. SS reviewed pt chart. Pt is from home with spouse. No discharge needs noted at this time. SS will continue to follow for discharge planning.
[2018-08-08] MEDS ORDERED: CLOP75TA PO (15:27)
[2018-08-08] MEDS ORDERED: EZET10TA18 PO (15:27)
--- NOTE | 2018-08-08 15:35 | PDOC3 ---
Discharge Summary Visit Information Date of Admission: Aug 06, 2018 Date of Discharge: Aug 08, 2018 Admitting Diagnosis: chest pain, Final Diagnosis NSTEMI - heparin GTT, ASA and NTG given CAD - 03/14/2013 had LAD ELIZABETH placed for a STEMI previously, on ASA Combined diastolic and systolic heart failure - previously noted with EF 40-45% with anterolateral wall hypokinesis 5 years ago. HLP - intolerant of statins, on repatha and zetia for LDL goal less than 70 Tobacco abuse - advised smoking cessation upon admission Brief Hospital Course Allergies Allergies Coded Allergies Type Severity Reaction Last Updated Verified amoxicillin Allergy Intermediate HIVES 09/18/15 Yes Vital Signs Vital Signs Date Time Temp Pulse Resp B/P (MAP) Pulse Ox O2 Delivery O2 Flow Rate FiO2 08/08/18 15:00 97.2 54 18 128/60 (82) 99 Room Air 97.2 08/08/18 09:36 2.0 Lab Results Laboratory Tests Test 08/06/18 16:50 08/06/18 21:30 08/07/18 04:40 08/07/18 11:00 White Blood Count 9.1 x10^3/uL (4.0-11.0) 7.7 x10^3/uL (4.0-11.0) Red Blood Count 4.74 x10^6/uL (3.50-5.40) 4.45 x10^6/uL (3.50-5.40) Hemoglobin 14.1 g/dL (12.0-15.5) 13.3 g/dL (12.0-15.5) Hematocrit 42.4 % (36.0-47.0) 40.6 % (36.0-47.0) Mean Corpuscular Volume 90 fL (79-100) 91 fL (79-100) Mean Corpuscular Hemoglobin 30 pg (25-35) 30 pg (25-35) Mean Corpuscular Hemoglobin Concent 33 g/dL (31-37) 33 g/dL (31-37) Red Cell Distribution Width 13.9 % (11.5-14.5) 14.0 % (11.5-14.5) Platelet Count 306 x10^3/uL (140-400) 281 x10^3/uL (140-400) Neutrophils (%) (Auto) 69 % (31-73) Lymphocytes (%) (Auto) 23 % (24-48) Monocytes (%) (Auto) 6 % (0-9) Eosinophils (%) (Auto) 2 % (0-3) Basophils (%) (Auto) 1 % (0-3) Neutrophils # (Auto) 6.2 x10^3uL (1.8-7.7) Lymphocytes # (Auto) 2.1 x10^3/uL (1.0-4.8) Monocytes # (Auto) 0.5 x10^3/uL (0.0-1.1) Eosinophils # (Auto) 0.1 x10^3/uL (0.0-0.7) Basophils # (Auto) 0.1 x10^3/uL (0.0-0.2) Sodium Level 140 mmol/L (136-145) Potassium Level 3.8 mmol/L (3.5-5.1) Chloride Level 104 mmol/L (98-107) Carbon Dioxide Level 21 mmol/L (21-32) Anion Gap 15 (6-14) Blood Urea Nitrogen 16 mg/dL (7-20) Creatinine 0.9 mg/dL (0.6-1.0) Estimated GFR (Cockcroft-Gault) 62.3 BUN/Creatinine Ratio 18 (6-20) Glucose Level 106 mg/dL (70-99) Calcium Level 9.6 mg/dL (8.5-10.1) Total Bilirubin 0.4 mg/dL (0.2-1.0) Aspartate Amino Transf (AST/SGOT) 22 U/L (15-37) Alanine Aminotransferase (ALT/SGPT) 22 U/L (14-59) Alkaline Phosphatase 138 U/L (46-116) Troponin I Quantitative < 0.017 ng/mL (0.000-0.055) 0.794 ng/mL (0.000-0.055) 3.281 ng/mL (0.000-0.055) Total Protein 7.5 g/dL (6.4-8.2) Albumin 3.9 g/dL (3.4-5.0) Albumin/Globulin Ratio 1.1 (1.0-1.7) Heparin Anti-Xa Act, Unfractionated 0.40 IU/mL (0.30-0.70) 0.47 IU/mL (0.30-0.70) Test 08/07/18 11:30 08/08/18 05:05 Troponin I Quantitative 2.512 ng/mL (0.000-0.055) Heparin Anti-Xa Act, Unfractionated 0.72 IU/mL (0.30-0.70) Laboratory Tests Test 08/08/18 05:05 Heparin Anti-Xa Act, Unfractionated 0.72 IU/mL (0.30-0.70) Brief Hospital Course Ms. Torres is a 67 old admit for chest pain, NSTEMI, troponin peak 3. and trended down. Cardiac cath, Dr. Coates, prior stent patent, some 50% occlusion distal, but he was able to pass a wire, cont med managemtn, and add zetia and plavix, f/u CV clinic advised to stop smoking some COPD evidence seen on CXR, should f/u Dr. Claudine Salcedo, may need PFT, may benefit from MDI Discharge Information Condition at Discharge: Improved Follow Up: Weeks Disposition/Orders: D/C to Home Scheduled Aspirin (Aspir 81) 81 Mg Tablet., 1 TAB PO DAILY, #30 Ref 5 (Reported) Entered as Reported by: RICH DOUGLAS on 09/18/151016 Last Action: Continued on 08/06/182349 by TRICIA CHO MD Clopidogrel Bisulfate (Clopidogrel) 75 Mg Tablet, 75 MG PO DAILYWBKFT for c ardiac, #30 Ref 2 Prescribed by: MOIRA QUEZADA on 08/08/181526 Escitalopram Oxalate (Escitalopram Oxalate) 20 Mg Tablet, 10 MG PO DAILY for depression MDD 10, (Reported) Entered as Reported by: MINGO BRASWELL on 03/14/13 0202 Last Action: Edited on 08/07/18 010 by Hieu Nelson Ezetimibe (Zetia) 10 Mg Tablet, 10 MG PO DAILY for cholesterol, #30 Ref 2 Prescribed by: MOIRA QUEZADA on 08/08/18 152 Losartan Potassium (Losartan Potassium) 50 Mg Tablet, 50 MG PO DAILY for HTN, (Reported) Entered as Reported by: RICH DOUGLAS on 09/18/15 1017 Last Action: Continued on 08/06/182349 by TRICIA CHO MD Metoprolol Succinate (Metoprolol Succinate ( Xl )) 25 Mg Tab.er.24h, 12.5 MG PO BID for FOR HYPERTENSION, #30 Ref 0 (Reported) Entered as Reported by: RICH DOUGLAS on 09/18/15 1017 Last Action: Continued on 08/06/182349 by TRICIA CHO MD Miscellaneous Medications Omeprazole Magnesium (Prilosec Otc) 20 Mg Tablet.dr, 20 MG PO, (Reported) Entered as Reported by: MINGO BRASWELL on 03/14/13 0202 Last Action: Converted on 08/06/182349 by TRICIA CHO MD Patient Instructions Patient Instructions > 30 min face to face discussed MOIRA QUEZADA MD Aug 08, 2018 15:35
--- NOTE | 2018-08-08 16:43 | CARD ---
MR#: [id number] Date of Study: 08/08/2018 Ordering Physician: PABLO MALIK, Referring Physician: TRICIA CHO, Tech: Kathy Person, RT (R) APPROVED REPORT Procedures Left heart catheterization Left ventriculogram Selective coronary angiogram IVF measurement of the LAD The patient is a 67-year-old female with a history of stent placement to the LAD. She was admitted wi th 20 minutes of chest discomfort that resolved post treatment with heparin. Troponin was minimally e levated at 3.0. In this setting heart catheterization was recommended. Risks and benefits were discus sed. The patient agreed to proceed. After informed consent was obtained the patient was brought to the heart catheterization lab. The are a of the right femoral artery was prepared in the usual manner with Betadine, sterile draping and loc al anesthetic. An 18-gauge needle was used to enter the right femoral artery, a wire placed and a 6 F rench sheath placed over the wire. A 6 Liberian JL4 diagnostic catheter was used to engage the left cor onary system and sequential injections in various views were obtained. A 6 Liberian Fabián right diag nostic catheter was used to engage the right coronary artery and sequential injections in various vie ws were obtained. A pigtail catheter was advanced to the ascending aorta and then the left ventricle. Pressures were measured. A 30 COFFMAN left ventriculogram was performed. Pull back pressures were then obtained. Of note all catheter exchanges were over a J-wire. Review of the patient's images showed wi austyn patent stents in the LAD. Just distally to the stents there appeared to be a lesion of 40-50%. H owever in this setting we proceeded to obtain a IFR measurement of this lesion. 1000 units of heparin were administered. An extra support 3.5 guide was used to engage the left system. An IFR wire was pl aced distal to the LAD lesion without difficulty. IFR measurements were obtained and were normal at 0 .92. The wire and catheter were removed from the patient. Injection the sheath showed normal placemen t. The sheath was removed and sealed with an Angio-Seal product. The patient was moved to the holding area. Findings. Hemodynamics. Left ventricular pressure of 134/8, 16. Aortic root pressure 131/58. Coronaries. Left main. The left main was a moderate size vessel with no lesions. Left anterior ascending. The LAD was a moderate size vessel. Previously placed stents in its mid vess el was widely patent. Just distally to the stent there was a 40-50% lesion. IFR measurements of this lesion were normal at 0.92. Left circumflex. The left circumflex is a moderately small nondominant vessel. It had no lesions. Right coronary artery. The right coronary artery was a moderately large dominant vessel. It had no le sions. Left ventriculogram. The left ventricle was imaged during a period of tachycardia. Ejection fraction was normal with no s ignificant wall motion abnormalities and an ejection fraction of 55%. <Conclusion> Widely patent stents in the LAD. Moderate disease post-stents in the LAD with a normal IFR measurement. No evidence of lesions in the left circumflex or right coronary artery. Intact LV systolic function. Signed by : Pablo Malik MD Electronically Approved : 08/08/2018 16:43:00
--- NOTE | 2018-08-08 17:33 | NUR ---
Discharge Note: STEPHANIE WANG Discharge instructions and discharge home medications reviewed with Patient and a copy given. All questions have been answered and understanding verbalized. The following instructions and handouts were given: coronary angioplasty, ezetimbe, and clopidogrel. Patient discharged to home with self care via self transport.
== END 2018-08-08 17:54 | disposition home or self-care (01) | DRG 280 ==
LOC: ER 16:36 → 2 SOUTH 22:30
PROVIDERS: ADMIT Internal Medicine; ATTEND Internal Medicine
PROC: 4A023N7 Measurement of Cardiac Sampling and Pressure, Left Heart, Percutaneous Approach (ICD-10-PCS; principal; 2018-08-08)
PROC: B2111ZZ Fluoroscopy of Multiple Coronary Arteries using Low Osmolar Contrast (ICD-10-PCS; 2018-08-08)
PROC: B2151ZZ Fluoroscopy of Left Heart using Low Osmolar Contrast (ICD-10-PCS; 2018-08-08)
PROC: 4A033BC Measurement of Arterial Pressure, Coronary, Percutaneous Approach (ICD-10-PCS; 2018-08-08)
DX: I21.4 Non-ST elevation (NSTEMI) myocardial infarction (principal); I50.43 Acute on chronic combined systolic (congestive) and diastolic (congestive) heart failure; K21.9 Gastro-esophageal reflux disease without esophagitis; F41.9 Anxiety disorder, unspecified; I25.2 Old myocardial infarction; E78.00 Pure hypercholesterolemia, unspecified; I11.0 Hypertensive heart disease with heart failure; E78.5 Hyperlipidemia, unspecified; I25.10 Atherosclerotic heart disease of native coronary artery without angina pectoris; F17.210 Nicotine dependence, cigarettes, uncomplicated; E66.3 Overweight; J44.9 Chronic obstructive pulmonary disease, unspecified; Z90.710 Acquired absence of both cervix and uterus; Z88.0 Allergy status to penicillin; Z95.5 Presence of coronary angioplasty implant and graft; Z82.49 Family history of ischemic heart disease and other diseases of the circulatory system; Z68.29 Body mass index [BMI] 29.0-29.9, adult
CPT/HCPCS: 93458; 93571; 99285; G0269; 36415; 71045; 80053; 84484; 85025; 85027; 85520; 93005; 96374; 96375; 99152; 99153; C1760; C1769; C1887; C1892; J1644; J2250; J2405; J3010; J7030; Q9967; C1771

== ENCOUNTER 2018-09-14 13:18 | Emergency (ER) | payer OTHER ==
[~2018-09-14] VITALS: Ht 165.1 cm; Wt 81.6 kg
[~2018-09-14 13:18] MED LIST changes: +CLOP75TA PO
--- NOTE | 2018-09-14 14:26 | RAD ---
KNEE RIGHT 3V 09/14/2018 1:53 PM INDICATION: Right knee pain and injury COMPARISON: None available. TECHNIQUE: 3 views the right knee are provided. FINDINGS: There is no acute fracture or dislocation. Small knee joint effusion. Bone mineralization is within normal limits. Joint spaces are maintained. Regional soft tissues are within normal limits. There is no soft tissue gas or osseous erosion. IMPRESSION: No acute fracture or dislocation. There is a small knee joint effusion. Electronically signed by: Gregoria Guzman MD (09/14/2018 2:23 PM) [id number]
--- NOTE | 2018-09-14 14:41 | PHYS DOC ---
Past Medical History Past Medical History: Anxiety, Depression, GERD, High Cholesterol, Hypert ension, AR, Pneumonia, Other Additional Past Medical Histor: REFLUX Past Surgical History: Angioplasty, Hysterectomy, Other Additional Past Surgical Histo: HEART CATH W/STENTS,L ELBOW,CARPAL TUNNEL Additional Information: 0.5 PPD Alcohol Use: Occasionally Drug Use: None Adult General Chief Complaint Chief Complaint: LOWER EXT PAIN HPI HPI Patient is a 67 year old female who presents to the emergency department, accompanied by her daughter, with complaints of right knee pain and swelling that radiates up to her right hip for the last 3 or 4 weeks. Patient denies any known injury or fall. She states she has had to walk with a limp because the pain has been so severe. Patient denies any numbness or tingling. Currently she rates her pain a 9 out of 10 on pain scale she denies any alleviating factors, the pain increases with movement and weightbearing. Review of Systems Review of Systems Constitutional: Denies fever or chills [] Musculoskeletal: Denies back pain see history of present illness Integument: Denies rash or skin lesions [] Neurologic: Denies headache, focal weakness or sensory changes [] Allergies Allergies Allergies Coded Allergies Type Severity Reaction Last Updated Verified amoxicillin Allergy Intermediate HIVES 09/18/15 Yes Physical Exam Physical Exam Constitutional: Well developed, well nourished, no acute distress, non-toxic appearance. [] HENT: Normocephalic, atraumatic, bilateral external ears normal, nose normal. [] Eyes: conjunctiva normal, no discharge. [] Lungs & Thorax: Respirations even and unlabored, no retractions, no respiratory distress Skin: Warm, dry, no erythema, no rash. [] Extremities: No cyanosis, no clubbing, ROM intact; right medial knee tenderness to palpation, no deformity, no crepitus, full range of motion of right knee, 2+ posterior tibial pulses of right lower extremity Neurologic: Alert and oriented X 3, no focal deficits noted. [] Psychologic: Affect normal, judgement normal, mood normal. [] Current Patient Data Vital Signs Vital Signs Date Time Temp Pulse Resp B/P (MAP) Pulse Ox O2 Delivery O2 Flow Rate FiO2 09/14/18 14:46 69 18 163/102 (122) 96 Room Air 09/14/18 13:27 98.5 98.5 EKG EKG [] Radiology/Procedures Radiology/Procedures PROCEDURE: KNEE RIGHT 3V KNEE RIGHT 3V 09/14/2018 1:53 PM INDICATION: Right knee pain and injury COMPARISON: None available. TECHNIQUE: 3 views the right knee are provided. FINDINGS: There is no acute fracture or dislocation. Small knee joint effusion. Bone mineralization is within normal limits. Joint spaces are maintained. Regional soft tissues are within normal limits. There is no soft tissue gas or osseous erosion. IMPRESSION: No acute fracture or dislocation. There is a small knee joint effusion. [] Course & Med Decision Making Course & Med Decision Making Pertinent Labs and Imaging studies reviewed. (See chart for details) [] Dragon Disclaimer Dragon Disclaimer This electronic medical record was generated, in whole or in part, using a voice recognition dictation system. Departure Departure Impression: Primary Impression: Right knee pain Additional Impressions: Effusion, right knee Hypertension Disposition: HOME, SELF-CARE Condition: STABLE Referrals: ALIREZA CROSS MD Patient Instructions: Knee Effusion, [id number], Knee Pain, [id number] Additional Instructions: TAKE TYLENOL OR IBUPROFEN NEEDED FOR PAIN. REST, ICE, AND ELEVATE EXTREMITY FOR COMFORT. ACTIVITY TOLERATED. FOLLOW UP WITH DR. CROSS FOR FURTHER EVALUATION. RETURN TO THE ER IF YOUR SYMPTOMS WORSEN. TAKE YOUR BLOOD PRESSURE MEDICATION WHEN YOU GET HOME, FOLLOW UP WITH YOUR PRIMARY CARE DOCTOR ABOUT YOUR BLOOD PRESSURE. Problem Qualifiers Primary Impression: Right knee pain Chronicity: unspecified Qualified Codes: M25.561 - Pain in right knee Additional Impressions: Hypertension Hypertension type: unspecified Qualified Codes: I10 - Essential (primary) hypertension MAGNUS ANDRADE [employer] Sep 14, 2018 14:41
[2018-09-14 14:46] VITALS: BP 163/102
== END 2018-09-14 15:01 | disposition home or self-care (01) ==
LOC: ER 13:18
DX: M25.561 Pain in right knee (principal); M25.461 Effusion, right knee; I10 Essential (primary) hypertension; G89.11 Acute pain due to trauma; K21.9 Gastro-esophageal reflux disease without esophagitis; E78.00 Pure hypercholesterolemia, unspecified; I25.2 Old myocardial infarction; Z95.5 Presence of coronary angioplasty implant and graft; F17.200 Nicotine dependence, unspecified, uncomplicated; Z88.1 Allergy status to other antibiotic agents; X58.XXXA Exposure to other specified factors, initial encounter; Y93.89 Activity, other specified; Y92.89 Other specified places as the place of occurrence of the external cause; Y99.8 Other external cause status
CPT/HCPCS: 73562; 99284

== ENCOUNTER → 2018-11-02 | Outpatient (CLI) | payer OTHER ==
[~2018-11-02] MED LIST changes: -EZET10TA18 PO; +EZET10TA20 PO
--- NOTE | 2018-11-02 15:37 | KCIC ---
MR of the right knee HISTORY: Right knee pain, chronic and progressive. Pain with weightbearing. TECHNIQUE: Routine multiplanar sequences are obtained. FINDINGS: Tear at the posterior root attachment to the medial meniscus. Mild blunting of the free margin of the lateral meniscus with mild intrameniscal signal. Anterior and posterior cruciate ligaments are intact. Medial collateral ligament intact. Iliotibial band unremarkable. Fibular collateral ligament, biceps femoris tendon and popliteus tendon are intact. Extensor mechanism is intact. Moderate joint effusion. No significant Nick's cyst. Severe chondral loss at the patella with mild subchondral cystic change. Full-thickness chondral defect at the weightbearing medial femoral condyle measures 15 mm wide by at least 10 mm AP. This demonstrates a fairly acute and well-defined lateral margin indicating that could represents a more acute defect, versus more degenerative in nature. A displaced articular cartilage fragment is not visualized, however. Degenerative changes are also seen at the lateral joint compartment. No aggressive bone destruction. No acute fracture. IMPRESSION: 1. Medial meniscal tear. 2. Degeneration versus mild tear of the lateral meniscus. 3. Degenerative joint disease. 4. More well-defined chondral defect of the weightbearing medial femoral condyle could be degenerative, versus more acute articular cartilage tear. A definite displaced chondral fragment is not seen however. Electronically signed by: Dane Peres MD (11/02/2018 3:34 PM) [facility]
== END | disposition home or self-care (01) ==
LOC: KCIC MRI 13:14
PROVIDERS: ATTEND Orthopaedic Surgery
DX: S83.241A Other tear of medial meniscus, current injury, right knee, initial encounter (principal); M17.11 Unilateral primary osteoarthritis, right knee; M25.461 Effusion, right knee; X58.XXXA Exposure to other specified factors, initial encounter; Y93.89 Activity, other specified; Y92.89 Other specified places as the place of occurrence of the external cause; Y99.8 Other external cause status
CPT/HCPCS: 73721

== ENCOUNTER 2018-12-02 07:05 | Day surgery (SDC) | payer MEDICARE ==
[~2018-12-02] VITALS: Ht 165.1 cm; Wt 79.0 kg
[~2018-12-02 07:05] MED LIST changes: +CLINDAMYCIN 900MG PREMIX 50 ML IV PRN; +EVOL140P SQ; +HYDROmorphone 2 MG/ML VIAL IV PRN; +IV RINGERS,LACTATED 1000ML 1,000 ML IV SCH; +LIDOCAINE 1% PF 2 ML VIAL. ID PRN; +MORPHINE SULFATE 2 MG/ML VIAL. IV PRN; +ONDANSETRON PF 4 MG/2 ML VIAL. IV PRN; +PANT20TA2 PO; +PROCHLORPERAZINE 10 MG/2 ML VIAL. IV PRN; +TRAM50TA PO; +VANCOMYCIN 1GM IVPB FOR OMNI 250 ML IV PRN; +fentaNYL PF VIAL 100 MCG/2 ML VIAL IV PRN
[2018-12-02 08:00] LABS: BASO % 1 % (0-3); EOS # 0.3 x10^3/uL (0.0-0.7); EOS % 4 % (0-3); HEMOGLOBIN 14.1 g/dL (12.0-15.5); LYMPH # 3.2 x10^3/uL (1.0-4.8); LYMPH % 44 % (24-48); MEAN CORPUSCULAR HEMOGLOBIN 30 pg (25-35); MEAN CORPUSCULAR HGB CONC 34 g/dL (31-37); MEAN CORPUSCULAR VOLUME 89 fL (79-100); MONO # 0.5 x10^3/uL (0.0-1.1); MONO % 7 % (0-9); NEUT # 3.2 x10^3/uL (1.8-7.7); NEUT % 44 % (31-73); PLATELET COUNT 298 x10^3/uL (140-400); RED BLOOD COUNT 4.69 x10^6/uL (3.50-5.40); WHITE BLOOD COUNT 7.2 x10^3/uL (4.0-11.0)
[2018-12-02] MEDS ORDERED: BUPIVACAINE-EPI 0.5%-1:200000 MPF 30 ML VIAL. INJ ONE (08:00)
[2018-12-02 08:13] LABS: CALCIUM 9.2 mg/dL (8.5-10.1); CREATININE 0.8 mg/dL (0.6-1.0); GFR 71.3; POTASSIUM 3.9 mmol/L (3.5-5.1)
[2018-12-02] MEDS ORDERED: LIDOCAINE 2% PF 5 ML VIAL. ONE (08:27)
[2018-12-02] MEDS ORDERED: fentaNYL PF VIAL 100 MCG/2 ML VIAL ONE (08:27)
[2018-12-02] MEDS ORDERED: ONDANSETRON PF 4 MG/2 ML VIAL. ONE (08:27)
[2018-12-02] MEDS ORDERED: DEXAMETHASONE SOD PHOS 4 MG/ML VIAL ONE (08:27)
[2018-12-02] MEDS ORDERED: MIDAZOLAM HCL/PF 2 MG/2 ML VIAL. ONE (08:27)
[2018-12-02] MEDS ORDERED: PROPOFOL 20 ML IV ONE (08:27)
[2018-12-02] MEDS ORDERED: GLYCOPYRROLATE 1 MG/5 ML VIAL. ONE (08:44)
[2018-12-02] MEDS ORDERED: ePHEDrine PF IN SALINE 50 MG/10 ML SYRINGE. IV ONE (09:13)
[2018-12-02] MEDS ORDERED: SEVOFLURANE 31 TO 60 MINUTES. IH ONE (09:22)
[2018-12-02] MEDS ORDERED: HYDR-3165 PO (09:37)
--- NOTE | 2018-12-02 09:39 | DISCH ---
DISCHARGE INSTRUCTIONS Condition on Discharge Condition on Discharge: Stable Activity After Discharge Activity Instructions for Disc: Activity as tolerated (slow advance to activity as tolerated) Weight Bearing Status after Di: Full weight bearing Diet after Discharge Diet after Discharge: Cardiac, Regular Wound Incision Care Wound/Incision Care: Ice to area for comfort, Change dressing (May remove dressing in 2 days may then shower no soaking) Contacting the after DC Call your doctor for: Concerns you may have Follow-Up Follow up with: Dr. Vallejo 2 weeks Treatment/Equipment after DC Adaptive Equipment Issued: None ALIREZA VALLEJO MD Dec 02, 2018 09:39
--- NOTE | 2018-12-02 09:45 | PDOC4 ---
Operative Note Operative Note Date of surgery: 12/02/2018 Preoperative diagnosis: Meniscal tear Postoperative diagnosis: Same with lateral meniscus tear and chondral flap tear medial femoral condyle and grade 3 chondromalacia patella Operative procedure: Right knee arthroscopy partial lateral meniscectomy chondroplasty of medial femoral condyle and patella Surgeon: Yoni Anesthesia: GenDoris Assist: Earline Estimated blood loss: 5 mL Complications: None Operative indications: Patient is 67-year-old female with pain swelling and mechanical symptoms particularly with twisting pivoting and increased activity MRI confirmed clinical suspicion of a meniscus tear I gone over with her the structure and function of the meniscus the operative and nonoperative treatment options along with the rationale and the possibility of continued pain possible infection nerve or blood vessel damage medical or other anesthetic complications among others including blood clots and the fact that I cannot undo degenerative changes in the knee any symptoms ongoing would have to be dealt with symptomatically all her questions were answered she wishes to proceed with surgical evaluation and treatment. Operative text: Patient was identified procedure verified patient placed in the supine position on the operating table. After adequate amounts of general anesthesia were administered the right lower extremity was prepped and draped in standard sterile fashion with a thigh tourniquet. After timeout was performed patient procedure identified and verified the right lower shunt he was exsanguinated by Esmarch bandage tourniquet inflated to 250 mmHg and a lateral portal established a medial portal established using spinal needle localization and the knee joint was systematically examined medial meniscus was probed and found to be intact as was the anterior cruciate ligament she was found to have a chondral flap tear partial thickness in the medial femoral condyle which was trimmed back to stable tissue using arthroscopic shaver. Lateral meniscus showed a large displaceable complex tear of the body involving the anterior and posterior horns which was trimmed back to stable tissue using arthroscopic punch and shaver. She had some grade 2-3 chondromalacia of the lateral femoral condyle not requiring debridement and some grade 3 chondromalacia of the patella which was lightly debrided with arthroscopic shaver. No loose bodies noted in the gutters or suprapatellar pouch the knee joint was drained of arthroscopic fluid instilled with have percent plain Marcaine in the portal and fat pad areas skin closure with nylon sterile dressings were applied patient was returned recovery room in stable condition having tolerated procedure well toes were noted warm pink following deflation of tourniquet ALIREZA CROSS MD Dec 02, 2018 09:45
[2018-12-02] MEDS: fentaNYL PF VIAL 100 MCG/2 ML VIAL IV PRN ×2 (09:52→09:58)
[2018-12-02] MEDS ORDERED: HYDROcodone/APAP 7.5/325MG 1 TAB TABLET PO ONE (10:00)
[2018-12-02 10:05] VITALS: BP 128/62
== END 2018-12-02 10:30 ==
LOC: SURG 07:05
PROVIDERS: ATTEND Orthopaedic Surgery
DX: S83.271A Complex tear of lateral meniscus, current injury, right knee, initial encounter (principal); M94.261 Chondromalacia, right knee; F41.9 Anxiety disorder, unspecified; F32.9 Major depressive disorder, single episode, unspecified; K21.9 Gastro-esophageal reflux disease without esophagitis; E78.5 Hyperlipidemia, unspecified; I10 Essential (primary) hypertension; I25.2 Old myocardial infarction; F17.210 Nicotine dependence, cigarettes, uncomplicated; Z90.710 Acquired absence of both cervix and uterus; Z98.890 Other specified postprocedural states; Z72.89 Other problems related to lifestyle; Z88.1 Allergy status to other antibiotic agents; X58.XXXA Exposure to other specified factors, initial encounter; Y93.89 Activity, other specified; Y92.89 Other specified places as the place of occurrence of the external cause; Y99.8 Other external cause status
CPT/HCPCS: 29881; 36415; 80048; 85025; A7015; C1782; J0171; J1100; J2001; J2250; J2270; J2405; J2704; J3010; J3490

== ENCOUNTER → 2019-04-17 | Outpatient (CLI) | payer MEDICARE ==
[~2019-04-17] MED LIST changes: -CLINDAMYCIN 900MG PREMIX 50 ML IV PRN; -EVOL140P SQ; +EVOL140P3 SQ; +HYDR-3165 PO; -HYDROmorphone 2 MG/ML VIAL IV PRN; -IV RINGERS,LACTATED 1000ML 1,000 ML IV SCH; -LIDOCAINE 1% PF 2 ML VIAL. ID PRN; -MORPHINE SULFATE 2 MG/ML VIAL. IV PRN; -ONDANSETRON PF 4 MG/2 ML VIAL. IV PRN; -PROCHLORPERAZINE 10 MG/2 ML VIAL. IV PRN; -VANCOMYCIN 1GM IVPB FOR OMNI 250 ML IV PRN; -fentaNYL PF VIAL 100 MCG/2 ML VIAL IV PRN
--- NOTE | 2019-04-17 16:35 | KCIC ---
MRI Lumbar Spine without contrast History: Pain into the right hip and leg Technique: Multiplanar, multi sequential noncontrast MR imaging was performed of the lumbar spine. Comparison: None Findings: There is some motion degradation. Lumbar vertebral body stature is mostly maintained, Schmorl's nodes such as at L4-5 and T12-L1. There is moderate to severe L4-5 degenerative disc disease, mild disc desiccation L2-3, L3-4, and L5-S1. Conus terminates at L1-2. There is amorphous L4-5 endplate edema likely reactive/degenerative in etiology, also degenerative endplate change at this level. AP alignment is within normal limits. L1-L2: This level was not included on the axial images. Spinal canal and neural foramina are adequate. L2-L3: Neural foramina and spinal canal are adequate. L3-L4: There is negligible disc osteophyte complex. There is minimal buckling of the ligamentum flavum and facet degenerative change. Spinal canal and neural foramina are adequate. L4-L5: There is minimal disc osteophyte complex and bulge. There is mild buckling of the ligamentum flavum and facet degenerative change. Spinal canal is not significantly narrowed. There is some artifact obscuring portions of the posterior elements bilaterally. Neural foramina are overall adequate. L5-S1: There is fairly severe facet degenerative change and mild buckling of the ligamentum flavum. Spinal canal is adequate. There is disc osteophyte complex in the inferior left neural foramen with probable superimposed shallow protrusion, resultant fairly severe narrowing of the left neural foramen greater distally with contact of the exiting left L5 nerve root. Right neural foramen is overall adequate. Impression: 1. There is L4-5 degenerative disc disease, degenerative endplate change and mild endplate edema likely reactive/degenerative in etiology. There is mild spondylosis at L4-5. There is fairly severe narrowing of the left L5-S1 neural foramen. There is multilevel lumbar facet degenerative change. Electronically signed by: Douglas Encarnacion MD (04/17/2019 4:32 PM) [id number]
== END | disposition home or self-care (01) ==
LOC: KCIC MRI 14:37
PROVIDERS: ATTEND Orthopaedic Surgery
DX: M51.36 Other intervertebral disc degeneration, lumbar region (principal); M47.816 Spondylosis without myelopathy or radiculopathy, lumbar region; M48.07 Spinal stenosis, lumbosacral region; Z98.890 Other specified postprocedural states
CPT/HCPCS: 72148